=== PATIENT | male | born 1960 | race Hispanic/Latino ===

== ENCOUNTER 2022-07-08 15:10 | Inpatient (IN) | payer SELFPAY ==
[~2022-07-08 15:10] MED LIST: Iopamidol-370 76% 500 ML 1 ML ONE
[2022-07-08 15:59] LABS: #Eosinphils 0.1 thou/uL (0.0-0.7); #Lymphocytes 1.7 thou/uL (1.20-3.40); #Monocytes 0.4 thou/uL (0.11-0.59); #Neutrophils 9.3 thou/uL (1.40-6.50); %Basophils 0.3 % (0.0-1.0); %Eosinophils 0.6 % (0.0-10.0); %Monocytes 3.5 % (0.0-10.0); %Neutrophils 80.7 % (42.0-75.0); Hemoglobin 11.9 g/dL (14.0-18.0); Mean Corpuscular HGB CONC 35.1 g/dL (32.0-36.0); Mean Corpuscular Hemoglobin 32.6 pg (27.0-31.0); Mean Corpuscular Volume 92.8 fl (78.0-98.0); Mean Platelet Volume 7.6 fL (7.4-10.4); Platelet Count 321 10x3/uL (130-400); RBC Distribution Width 16.1 % (11.5-14.5); Red Blood Cell (RBC) Count 3.64 mill/uL (4.70-6.10); White Blood Cell (WBC) Count 11.5 10x3/uL (4.8-10.8)
[2022-07-08 16:07] LABS: INR-International Normal Ratio 1.1; PTT 31.3 sec (22.9-36.1)
[2022-07-08 16:14] LABS: ALT (SGPT) 370 U/L (8-55); AST (SGOT) 556 U/L (5-34); Albumin 2.5 g/dL (3.4-4.8); Anion Gap 12 mmol/L (10-20); BUN (Urea Nitrogen) 42 mg/dL (8.4-25.7); Calc. Creatinine Clearance 0 mL/min (70-130); Carbon Dioxide 20 mmol/L (23-31); Chloride 104 mmol/L (98-107); Estimated GFR 46; Globulin 2.9 g/dL (2.4-3.5); Glucose 81 mg/dL (80-115); Lipase 18 U/L (8-78); Potassium 3.5 mmol/L (3.5-5.1); Protein, Total 5.4 g/dL (5.8-8.1); Sodium 132 mmol/L (136-145)
[2022-07-08 16:25] LABS: Bilirubin, Total 35.3 mg/dL (0.2-1.2)
[2022-07-08 16:27] LABS: Alkaline Phosphatase Greater than 4000 U/L (40-110)
[2022-07-08 17:32] LABS: Acetaminophen Less than 10.0 mcg/mL (10.0-30.0); Alcohol Less than 10 mg/dL (Less than 10); Salicylate Less than 8.0 mg/dL (15.0-30.0)
[2022-07-08 17:37] LABS: HBCM Index 0.06 S/CO (0-0.79); HBSAg Index 0.18 S/CO (0-0.99); Hep A IgM AB Non-Reactive (NonReactive); Hep A IgM S/CO 0.24 S/CO (0-0.79); Hep B Surf Ag Non-Reactive S/CO (NonReactive); Hep C IgG Ab Non-Reactive (NonReactive); Hep C Index 0.05 S/CO (0-0.79); Hepatitis B Core IgM Abs Non-Reactive (NonReactive)
[2022-07-08] MEDS ORDERED: Morphine 4 MG/ML VIAL ONE (18:24)
[2022-07-08] MEDS: Sodium Chloride 0.9% 1,000 ML IV SCH (20:27)
[2022-07-08 20:40] VITALS: BMI 20.9
[2022-07-09] MEDS: Sodium Chloride 0.9% 1,000 ML IV SCH ×3 (05:40→21:02)
[2022-07-09 08:50] LABS: Hemoglobin 10.8 g/dL (14.0-18.0); Mean Corpuscular HGB CONC 34.3 g/dL (32.0-36.0); Mean Corpuscular Hemoglobin 32.4 pg (27.0-31.0); Mean Corpuscular Volume 94.5 fl (78.0-98.0); Mean Platelet Volume 7.5 fL (7.4-10.4); Platelet Count 297 10x3/uL (130-400); Red Blood Cell (RBC) Count 3.33 mill/uL (4.70-6.10); White Blood Cell (WBC) Count 12.7 10x3/uL (4.8-10.8)
[2022-07-09] MEDS ORDERED: FLU VACC QS2022-23(6MOS UP)/PF 60 MCG/0.5 ML SYRINGE IM ONE (09:00)
[2022-07-09 09:06] LABS: ALT (SGPT) 335 U/L (8-55); AST (SGOT) 521 U/L (5-34); Albumin 2.3 g/dL (3.4-4.8); Alkaline Phosphatase 3849 U/L (40-110); Anion Gap 13 mmol/L (10-20); BUN (Urea Nitrogen) 45 mg/dL (8.4-25.7); Calc. Creatinine Clearance 52 mL/min (70-130); Calcium 9.3 mg/dL (7.8-10.44); Carbon Dioxide 15 mmol/L (23-31); Chloride 106 mmol/L (98-107); Estimated GFR 64; Globulin 2.8 g/dL (2.4-3.5); Glucose 72 mg/dL (80-115); Potassium 3.5 mmol/L (3.5-5.1); Protein, Total 5.1 g/dL (5.8-8.1); Sodium 130 mmol/L (136-145)
[2022-07-09 09:11] LABS: Bilirubin, Total 32.7 mg/dL (0.2-1.2)
[2022-07-09 10:36] LABS: Band 1 % (5-11); Lymphocytes 16 % (21-51); MDiff Complete? YES; Neutrophil 83 % (42-75); Platelet Morphology Comment Appears Adequate; Polychromasia SLIGHT = 2-3 cells (100X) (0-2/hpf)
[2022-07-10 07:37] LABS: ALT (SGPT) 350 U/L (8-55); AST (SGOT) 534 U/L (5-34); Albumin 2.2 g/dL (3.4-4.8); Alkaline Phosphatase Greater than 4000 U/L (40-110); Anion Gap 12 mmol/L (10-20); BUN (Urea Nitrogen) 48 mg/dL (8.4-25.7); Calc. Creatinine Clearance 44 mL/min (70-130); Calcium 9.4 mg/dL (7.8-10.44); Carbon Dioxide 17 mmol/L (23-31); Chloride 108 mmol/L (98-107); Estimated GFR 52; Globulin 2.6 g/dL (2.4-3.5); Glucose 67 mg/dL (80-115); Potassium 3.7 mmol/L (3.5-5.1); Protein, Total 4.8 g/dL (5.8-8.1); Sodium 133 mmol/L (136-145)
[2022-07-10 07:48] LABS: Mean Corpuscular HGB CONC 34.4 g/dL (32.0-36.0); Mean Corpuscular Hemoglobin 32.3 pg (27.0-31.0); Mean Platelet Volume 7.8 fL (7.4-10.4); Platelet Count 268 10x3/uL (130-400); RBC Distribution Width 16.1 % (11.5-14.5); Red Blood Cell (RBC) Count 3.41 mill/uL (4.70-6.10); White Blood Cell (WBC) Count 12.6 10x3/uL (4.8-10.8)
[2022-07-10] MEDS: Sodium Chloride 0.9% 1,000 ML IV SCH ×2 (08:53→20:21)
[2022-07-10 09:08] LABS: Band 4 % (5-11); Lymphocytes 9 % (21-51); MDiff Complete? YES; Monocytes 5 % (0-10); Neutrophil 82 % (42-75); RBC Morphology Normal
[2022-07-10] MEDS ORDERED: Fentanyl 100 MCG/2 ML VIAL ONE (10:10)
[2022-07-10] MEDS ORDERED: Iopamidol 30 ML ONE (10:19)
[2022-07-10] MEDS ORDERED: Indomethacin 50 MG SUPP ONE (10:20)
[2022-07-10] MEDS ORDERED: Levofloxacin 500 mg/D5W 100 ml Premix Bag ONE (10:35)
[2022-07-10] MEDS ORDERED: PROPOFOL 200 MG/20 ML VIAL ONE (10:40)
[2022-07-10] MEDS ORDERED: Rocuronium Bromide 10 MG/ML (10ML VIAL) ONE (10:40)
[2022-07-10] MEDS ORDERED: Dexamethasone 20 MG/5 ML VIAL ONE (10:40)
[2022-07-10] MEDS ORDERED: Ondansetron PF 4 MG/2 ML Vial ONE (10:40)
[2022-07-10] MEDS ORDERED: NEOSTIGMINE 3 MG/3 ML SYR 3 MG/3 ML SYRINGE ONE (10:40)
[2022-07-10] MEDS ORDERED: PHENYLEPHRINE-NS 100 MCG/ML 10 ML SYRINGE ONE (10:40)
[2022-07-10] MEDS ORDERED: ePHEDrine 50 MG/ML VIAL ONE (10:40)
[2022-07-10] MEDS ORDERED: Glycopyrrolate 0.2 MG/ML 5 ML SYRINGE ONE (10:40)
[2022-07-10] MEDS ORDERED: Ondansetron HCl/PF 4 MG/2 ML Vial IVP PRN (11:39)
[2022-07-11] MEDS: Sodium Chloride 0.9% 1,000 ML IV SCH ×4 (06:52→23:01)
[2022-07-11 07:32] LABS: Hemoglobin 11.2 g/dL (14.0-18.0); Mean Corpuscular HGB CONC 33.2 g/dL (32.0-36.0); Mean Corpuscular Hemoglobin 31.5 pg (27.0-31.0); Mean Corpuscular Volume 94.7 fl (78.0-98.0); Platelet Count 273 10x3/uL (130-400); RBC Distribution Width 15.8 % (11.5-14.5); Red Blood Cell (RBC) Count 3.57 mill/uL (4.70-6.10); White Blood Cell (WBC) Count 13.3 10x3/uL (4.8-10.8)
[2022-07-11 07:34] LABS: Albumin 2.2 g/dL (3.4-4.8); Anion Gap 15 mmol/L (10-20); BUN (Urea Nitrogen) 56 mg/dL (8.4-25.7); Calc. Creatinine Clearance 34 mL/min (70-130); Carbon Dioxide 12 mmol/L (23-31); Chloride 109 mmol/L (98-107); Estimated GFR 38; Globulin 2.7 g/dL (2.4-3.5); Glucose 91 mg/dL (80-115); Potassium 3.9 mmol/L (3.5-5.1); Protein, Total 4.9 g/dL (5.8-8.1); Sodium 132 mmol/L (136-145)
[2022-07-11 07:35] LABS: ALT (SGPT) 313 U/L (8-55); AST (SGOT) 332 U/L (5-34); Alkaline Phosphatase 3783 U/L (40-110)
[2022-07-11 07:45] LABS: Bilirubin, Total 24.9 mg/dL (0.2-1.2)
[2022-07-11 09:30] LABS: Band 5 % (5-11); Lymphocytes 11 % (21-51); MDiff Complete? YES; Monocytes 3 % (0-10); Neutrophil 80 % (42-75); Platelet Morphology Comment Appears Adequate; Polychromasia SLIGHT = 2-3 cells (100X) (0-2/hpf); Reactive Lymphocytes 1 % (0-10); Target Cells SLIGHT = 2-5 cells (100X) (0-1/hpf)
[2022-07-12] MEDS: Sodium Chloride 0.9% 1,000 ML IV SCH (07:14)
[2022-07-12 07:48] LABS: Hemoglobin 10.7 g/dL (14.0-18.0); Mean Corpuscular HGB CONC 33.7 g/dL (32.0-36.0); Mean Corpuscular Hemoglobin 32.4 pg (27.0-31.0); Mean Corpuscular Volume 96.2 fl (78.0-98.0); Mean Platelet Volume 7.8 fL (7.4-10.4); Platelet Count 249 10x3/uL (130-400); RBC Distribution Width 15.8 % (11.5-14.5); Red Blood Cell (RBC) Count 3.29 mill/uL (4.70-6.10); White Blood Cell (WBC) Count 13.5 10x3/uL (4.8-10.8)
[2022-07-12 08:05] LABS: ALT (SGPT) 236 U/L (8-55); AST (SGOT) 176 U/L (5-34); Albumin 2.1 g/dL (3.4-4.8); Alkaline Phosphatase 3003 U/L (40-110); Anion Gap 14 mmol/L (10-20); BUN (Urea Nitrogen) 67 mg/dL (8.4-25.7); Bilirubin, Total 16.5 mg/dL (0.2-1.2); Calc. Creatinine Clearance 26 mL/min (70-130); Calcium 8.2 mg/dL (7.8-10.44); Carbon Dioxide 14 mmol/L (23-31); Chloride 110 mmol/L (98-107); Estimated GFR 28; Globulin 2.5 g/dL (2.4-3.5); Glucose 77 mg/dL (80-115); Protein, Total 4.6 g/dL (5.8-8.1); Sodium 134 mmol/L (136-145)
[2022-07-12 08:48] LABS: Lymphocytes 15 % (21-51); MDiff Complete? YES; Monocytes 2 % (0-10); Neutrophil 83 % (42-75); Platelet Morphology Comment Appears Adequate; Polychromasia SLIGHT = 2-3 cells (100X) (0-2/hpf); Target Cells SLIGHT = 2-5 cells (100X) (0-1/hpf)
[2022-07-12 16:45] LABS: Anion Gap 15 mmol/L (10-20); BUN (Urea Nitrogen) 68 mg/dL (8.4-25.7); Calc. Creatinine Clearance 27 mL/min (70-130); Calcium 8.3 mg/dL (7.8-10.44); Carbon Dioxide 11 mmol/L (23-31); Chloride 114 mmol/L (98-107); Estimated GFR 29; Glucose 78 mg/dL (80-115); Potassium 4.5 mmol/L (3.5-5.1); Sodium 135 mmol/L (136-145)
[2022-07-12 17:26] VITALS: BP 101/68; TEMP 97.4
[2022-07-13 11:14] LABS: QuantiFERON-TB Gold Plus Negative (Negative)
== END 2022-07-12 18:36 | disposition hospice, home (50) | DRG 435 ==
LOC: ERS 15:10 → ERHOLD 18:28 → T4-B 20:20
PROVIDERS: ADMIT Student in an Organized Health Care Education/Training Program; ATTEND Family Medicine
PROC: 0F798DZ Dilation of Common Bile Duct with Intraluminal Device, Via Natural or Artificial Opening Endoscopic (ICD-10-PCS; principal; 2022-07-10)
DX: C25.1 Malignant neoplasm of body of pancreas (principal); K83.1 Obstruction of bile duct; N17.9 Acute kidney failure, unspecified; Z20.822 Contact with and (suspected) exposure to COVID-19; I10 Essential (primary) hypertension; F32.A Depression, unspecified; R74.01 Elevation of levels of liver transaminase levels; Z28.21 Immunization not carried out because of patient refusal; Z79.899 Other long term (current) drug therapy
CPT/HCPCS: 36415; 71260; 74177; 74330; 76705; 80053; 80074; 80307; 82140; 83605; 83690; 85025; 85610; 85730; 86301; 86480; 93005; C2617; J1100; J1956; J2270; J2405; J2704; J3010; J3490; J7050; Q9967; U0003; U0005